=== PATIENT | male | born 1935 | race Caucasian/White ===

== ENCOUNTER 2019-11-01 13:57 | Observation (INO) | payer OTHER ==
[2019-11-01 14:18] VITALS: BMI 31.3
[2019-11-01] MEDS ORDERED: DIPHENHYDRAMINE 25 MG TAB/CAP PO PRN (15:00)
[2019-11-01] MEDS ORDERED: LOPERAMIDE HCL 2 MG CAPSULE PO PRN (15:00)
[2019-11-01] MEDS ORDERED: ACETAMINOPHEN 325 MG TABLET PO PRN (15:00)
[2019-11-01] MEDS ORDERED: ONDANSETRON 4 MG (ODT) TAB PO PRN (15:00)
[2019-11-01] MEDS ORDERED: ONDANSETRON 4 MG/2 ML VIAL IV PRN (15:00)
[2019-11-01] MEDS ORDERED: POLYETHYL GLY 3350 17 GM/DOSE PO PRN (15:00)
[2019-11-01 15:18] LABS: Absolute Lymphocytes (CBC) 0.9 K/uL (0.7-4.9); Basophils % 0.8 % (0-1.3); Hematocrit 42.6 % (39.6-49.0); Lymphocytes % 17.6 % (15.3-44.8); MPV 9.3 fL (7.6-11.3); RBC Red Blood Cell Count 4.62 M/uL (4.33-5.43)
[2019-11-01 15:22] LABS: Protime INR 1.02
--- NOTE | 2019-11-01 15:30 | RAD REPORT ---
EXAM DESCRIPTION: CT - Thorax Wo Con CLINICAL HISTORY: Chest pain dyspnea,wt loss,dysphagia COMPARISON: No comparisons FINDINGS: The lungs are clear. No pleural thickening or pleural effusion. No pneumothorax. No axillary, mediastinal or hilar adenopathy. No concerning bony finding. Small cystic lesion is seen right kidney, incompletely assessed. All CT scans are performed using dose optimization technique as appropriate and may include automated exposure control or mA/KV adjustment according to patient size. IMPRESSION: Unremarkable examination.
[2019-11-01 15:56] LABS: ALT/SGPT 18 U/L (12-78); AST/SGOT 14 U/L (15-37); Albumin 3.6 g/dL (3.4-5.0); Alkaline Phosphatase 65 U/L (45-117); BUN Blood Urea Nitrogen 15 mg/dL (7-18); Bicarbonate 29 mmol/L (21-32); Bilirubin Direct 0.2 mg/dL (0-0.2); Bilirubin Total 0.6 mg/dL (0.2-1.0); CKMB Creatine Kinase MB 1.5 ng/mL (0.3-3.6); Creatine Phosphokinase 72 U/L (39-308); Glucose Level 140 mg/dL (74-106); Phosphorus 2.2 mg/dL (2.5-4.9); Potassium 4.1 mmol/L (3.5-5.1); Protein, Total 7.3 g/dL (6.4-8.2); Sodium Level 139 mmol/L (136-145)
[2019-11-01 16:07] LABS: Urine Appearance CLEAR; Urine Bilirubin NEGATIVE (NEG); Urine Blood NEGATIVE (NEG); Urine Color YELLOW; Urine Glucose NEGATIVE (NEG); Urine Protein 1+ (NEG); Urine Specific Gravity 1.015 (1.005-1.030); Urine Urobilinogen 0.2 mg/dL (0.2-1.0); Urine pH 6.5 (5.0-7.0)
[2019-11-01 16:14] LABS: Urine Microscopic Reflex ORDER UMIC
[2019-11-01 16:33] LABS: Urine Bacteria <20 /HPF (NONE SEEN); Urine Culture Reflex Order NOT NEEDED; Urine RBC <5 /HPF (NONE SEEN)
[2019-11-01 17:25] LABS: Troponin I < 0.02 ng/mL (0.0-0.045)
--- NOTE | 2019-11-01 17:37 | RAD REPORT ---
EXAM DESCRIPTION: NM - Vent Perfusion VQ Scan - 11/01/2019 5:24 pm CLINICAL HISTORY: r/o PE Chest pain, shortness of breath COMPARISON: Urinary Bladder dated 11/14/2017; Thorax Wo Con dated 11/01/2019 TECHNIQUE: 12.6mCi Xe-133 gas inhaled and 7.4mCi Tc-MAA IV. Planar ventilation scan was performed in posterior projection after Xe-133 gas inhalation (wash-in, e quilibrium, and wash-out phases) followed by perfusion scan with Tc-MAA IV in multiple projections. Examination is correlated with recent chest radiograph. FINDINGS: Normal ventilation with appropriate wash-out and no significant air-trapping. No mismatched segmental perfusion defect. IMPRESSION: Low probability of pulmonary thromboembolism.
[2019-11-01] MEDS ORDERED: FUROSEMIDE 40 MG TABLET PO ONE (18:11)
[2019-11-01] MEDS ORDERED: TRAZODONE 50 MG TABLET PO ONE (20:54)
[2019-11-01] MEDS ORDERED: ALBUTEROL 2.5 MG/3 ML NEB SOL NEB PRN (20:58)
[2019-11-01] MEDS ORDERED: HOME MED 1 EA UNK (Simvastatin [Simvastatin] 1 TAB) PO SCH (21:00)
--- NOTE | 2019-11-01 21:18 | RAD REPORT ---
EXAM DESCRIPTION: US - Extrem Venous W Compress Wilbert - 11/01/2019 8:50 pm CLINICAL HISTORY: HIGH D DIMER, BOTH LEGS. Bilateral leg edema and swelling. COMPARISON: Upper Lower Extrem Art Multi dated 02/18/2019 TECHNIQUE: Real-time sonographic interrogation of the left and right lower extremity deep venous sys tems was performed. FINDINGS: Normal compressibility, flow augmentation, phasic flow and spontaneous flow is identified in both the left and right lower extremity deep venous systems. IMPRESSION: No sonographic evidence of left or right lower extremity deep venous thrombosis.
--- NOTE | 2019-11-01 23:32 | CON ---
Identification: 84-year-old man. Reason For Consult: Congestive heart failure. History Of Present Illness: Mr. Chan is 84. For several weeks or perhaps a month, he has been having a hard time sleeping. He will sleep for 30 minutes or so then sit to catch his breath. He wakes up out of breath, sits up, then improves in 30 minutes or so. Does not have chest pain or exertional dyspnea. He had noninvasive testing that was fine several years ago. He has underlying diabetes, obesity, hypertension, dyslipidemia. Outpatient Medications: Cholecalciferol, simvastatin, losartan, and naltrexone. Allergies: HE HAS NO ALLERGIES. Social History: He does not use tobacco. He quit probably 50 years ago, he said. Physical Examination: General: He is 5 feet 8 inches, 206 pounds, obese, alert, oriented, pleasant, not in distress. Lungs: Reveal some mild wheeze and crackles. Heart: Within normal limits. Abdomen: Soft. Extremities: Within normal limits. Distal pulses palpable. Actually, there is 1+ edema. Laboratory Data: His creatinine is 1.48 and his glomerular filtration rate is 48. He has stage 3 renal insufficiency. Impression: The patient has congestive heart failure. I would imagine that is diastolic. We will get an echocardiogram. Adding Lasix to his present regimen will help him. I am going to ask him to take a dose of Lasix tonight. The diuresis probably will need to continue as out patient alog with sodium restriction. SH/MODL Voice ID: [id number] Report ID: [id number] GISELLE
[2019-11-02] MEDS: ALBUTEROL 2.5 MG/3 ML NEB SOL NEB SCH ×2 (01:32→08:00)
[2019-11-02] MEDS: IPRATROPIUM BROM 0.5MG/2.5ML NEB SCH ×2 (01:32→08:00)
[2019-11-02 04:49] LABS: Absolute Lymphocytes (CBC) 0.9 K/uL (0.7-4.9); Basophils % 0.6 % (0-1.3); Hematocrit 42.2 % (39.6-49.0); Lymphocytes % 15.4 % (15.3-44.8); MPV 9.8 fL (7.6-11.3); RBC Red Blood Cell Count 4.54 M/uL (4.33-5.43)
[2019-11-02 04:57] LABS: Magnesium 1.9 mg/dL (1.8-2.4); Potassium 3.6 mmol/L (3.5-5.1)
[2019-11-02 05:57] LABS: UR MICROALBUMIN 10.6 mg/dL (< 1.9)
[2019-11-02] MEDS ORDERED: AMLODIPINE 2.5 MG TAB PO SCH (09:00)
[2019-11-02] MEDS ORDERED: ENOXAPARIN 40 MG/0.4 ML SQ SCH (09:00)
[2019-11-02] MEDS ORDERED: NALTREXONE PO SCH (09:00)
[2019-11-02] MEDS ORDERED: ENOXAPARIN 30 MG/0.3 ML SQ SCH (09:00)
[2019-11-02] MEDS ORDERED: FUROSEMIDE 40 MG TABLET PO SCH (09:00)
[2019-11-02] MEDS ORDERED: POTASSIUM CL SA 10 MEQ TAB PO ONE (09:00)
--- NOTE | 2019-11-02 09:55 | RAD REPORT ---
EXAM DESCRIPTION: US - Abdomen Exam Complete - 11/02/2019 9:04 am CLINICAL HISTORY: Abdominal pain. PAIN IN ABDOMEN COMPARISON: Renal Ultrasound-Complete dated 11/14/2017 FINDINGS: Mild diffuse fatty liver is seen. No focal liver lesions or intrahepatic biliary dilatatio n is seen. The gallbladder demonstrates no gallstones, pericholecystic fluid or gallbladder wall thickening. Co mmon bile duct is normal in caliber measuring 3 mm. Both kidneys are normal in size with mild cortical thinning. No hydronephrosis, focal lesion of parth rn or perinephric fluid. The spleen is normal in size measuring 10 cm The pancreas and aorta are obscured by bowel gas. The visualized aspects of the IVC are grossly normal. IMPRESSION: Mild fatty liver.
[2019-11-02 12:06] VITALS: BP 131/69; TEMP 97.6
[2019-11-02 12:23] VITALS: O2SAT 98
--- NOTE | 2019-11-02 12:51 | ECHO ---
HEIGHT: 5 ft 8 in WEIGHT: 206 lb 0 oz DATE OF STUDY: 11/02/[address]: Camacho Domingo MD 2-DIMENSIONAL: YES M.MODE: YES DOPPLER: YES COLOR FLOW: YES TDS: NO PORTABLE: NO DEFINITY: NO BUBBLE STUDY: NO DIAGNOSIS: EDEMA, DYSPNEA CARDIAC HISTORY: CATHERIZATION: NO SURGERY: NO PROSTHETIC VALVE: NO PACEMAKER: NO MEASUREMENTS (cm) DIASTOLIC (NORMALS) SYSTOLIC (NORMALS) IVSd 1.1 (0.6-1.2) LA Diam 2.9 (1.9-4.0) LVEF 65% LVIDd 4.9 (3.5-5.7) LVIDs 3.1 (2.0-3.5) %FS 36% LVPWd 1.3 (0.6-1.2) Ao Diam 3.1 (2.0-3.7) 2 DIMENSIONAL ASSESSMENT: RIGHT ATRIUM: NORMAL LEFT ATRIUM: NORMAL RIGHT VENTRICLE: NORMAL LEFT VENTRICLE: NORMAL TRICUSPID VALVE: NORMAL MITRAL VALVE: MITRAL ANNULAR CALCIFICATION PULMONIC VALVE: NORMAL AORTIC VALVE: SCLEROSIS PERICARDIAL EFFUSION: NONE AORTIC ROOT: NORMAL LEFT VENTRICULAR WALL MOTION: NORMAL LEFT VENTRICULAR EJECTION FRACTION, DECREASED LEFT VENTRICULAR COMPLIANCE. DOPPLER/COLOR FLOW: NORMAL COMMENTS: AORTIC SCLEROSIS WITH NO STENOSIS. MITRAL ANNULAR CALCIFICATION. NORMAL LEFT VENTRICULAR SIZE. DECREASED LEFT VENTRICULAR COMPLIANCE. NORMAL LEFT VENTRICULAR EJECTION FRACTION. TECHNOLOGIST: Filippo PAIGE
--- NOTE | 2019-11-02 17:53 | P.DS ---
Admission Date: 11/01/19 Discharge Date: 11/02/19 Disposition: ROUTINE DISCHARGE Discharge Condition: FAIR - Problems (1) Diastolic CHF, acute Status: Acute (2) HTN (hypertension) Status: Chronic Qualifiers: Hypertension type: essential hypertension Qualified Code(s): I10 - Essential (primary) hypertension (3) Diabetes Status: Chronic Qualifiers: Diabetes mellitus type: type 2 (4) CKD (chronic kidney disease) stage 3, GFR 30-59 ml/min Status: Chronic Hospital Course: MR. GOVEA COMES WITH DYSPNEA, PND, ORTHOPNEA AT MY OFFICE. I SUSPECTED CHF AND ADMITTED HIM FOR FURTHER FU. CXR IS NEGATIVE, VQ NEG, VENOUS DOPPLER NEG BUT HE DID FEEL BETTER AFTER SMALL DOSE OF LASIX. HE NOW ON LASIX AND COREG. I STOPPED LOSARTAN TO SEE IF CREATININE IMPROVES. FU IN ONE WEEK. Vital Signs/Physical Exam: Temp Pulse Resp BP Pulse Ox 97.6 F 66 15 131/69 99 11/02/19 12:00 11/02/19 12:00 11/02/19 12:00 11/02/19 12:00 11/02/19 12:00 Laboratory Data at Discharge: WBC 5.9 K/uL (4.3-10.9) 11/02/19 04:14 Hgb 14.3 g/dL (13.6-17.9) 11/02/19 04:14 Hct 42.2 % (39.6-49.0) 11/02/19 04:14 Plt Count 134 K/uL (152-406) L 11/02/19 04:14 PT 12.0 SECONDS (9.5-12.5) 11/01/19 15:02 INR 1.02 11/01/19 15:02 APTT 27.9 SECONDS (24.3-36.9) 11/01/19 15:02 Sodium 139 mmol/L (136-145) 11/02/19 04:14 Potassium 3.6 mmol/L (3.5-5.1) 11/02/19 04:14 BUN 14 mg/dL (7-18) 11/02/19 04:14 Creatinine 1.56 mg/dL (0.55-1.3) H 11/02/19 04:14 Glucose 149 mg/dL (74-106) H 11/02/19 04:14 Phosphorus 2.2 mg/dL (2.5-4.9) L 11/01/19 15:02 Magnesium 1.9 mg/dL (1.8-2.4) 11/02/19 04:14 Total Bilirubin 0.6 mg/dL (0.2-1.0) 11/01/19 15:02 AST 14 U/L (15-37) L 11/01/19 15:02 ALT 18 U/L (12-78) 11/01/19 15:02 Alkaline Phosphatase 65 U/L (45-117) 11/01/19 15:02 Troponin I < 0.02 ng/mL (0.0-0.045) 11/01/19 15:02 Home Medications: Cholecalciferol (Vitamin D3) [Vitamin D 1000 Iu Tab*] 1 tab PO DAILY 11/01/19 Naltrexone HCl Dihydrate 1.5 mg PO DAILY 11/01/19 Simvastatin 1 tab PO BEDTIME 11/01/19 Furosemide 20 mg PO DAILY #90 tablet 11/02/19 carvediloL [Carvedilol] 6.25 mg PO BID #180 tablet 11/02/19 New Medications: carvediloL [Carvedilol] 6.25 mg PO BID #180 tablet Furosemide 20 mg PO DAILY #90 tablet Diet: AHA
--- NOTE | 2019-11-02 19:19 | PN ---
Date of Progress Note: 11/02/2019 Mr. Chan was admitted with shortness of breath on November 01, 2019. The most likely diagnosis was diastolic congestive heart failure, is improving now. He was taking Norvasc, inhalers, Zocor, Loven ox as well as Lasix. I think his amlodipine was stopped. Echocardiogram today confirmed normal ejec tion fraction with decreased left ventricular compliance consistent with diastolic congestive heart f ailure that is early age and mild. Nevertheless, I think I am comfortable with him going home on CAN inhibitors and Lasix as well as inhalers and statin. I will make arrangements for him to have outpa tient stress testing. He can go home today and we will see him in the office in the next 2 weeks. T he case was discussed with Dr. Domingo. CHELSEA/GAYLE Voice ID: [id number] Report ID: [id number]
== END 2019-11-02 13:11 | disposition home or self-care (01) ==
LOC: 4TH 13:57
PROVIDERS: ADMIT Internal Medicine; ATTEND Internal Medicine
DX: I50.31 Acute diastolic (congestive) heart failure (principal); I13.0 Hypertensive heart and chronic kidney disease with heart failure and stage 1 through stage 4 chronic kidney disease, or unspecified chronic kidney disease; N18.3 Chronic kidney disease, stage 3 (moderate); E11.22 Type 2 diabetes mellitus with diabetic chronic kidney disease; E66.9 Obesity, unspecified; Z68.31 Body mass index [BMI] 31.0-31.9, adult
CPT/HCPCS: 93306; 85025 ×2; 80048 ×2; 36415 ×2; 83735 ×2; 82550; 84100; 85610; 85379; 80076; 85730; 85652; 84443; 83036; 82570; 84484; 82553; 82607; 84403; 82306; 84238; 83880; 86140; 82043; 71250; 93970; 76700; 78582; G0379; J1650; A9558; A9540; G0378 ×3; 81003; 81015

== ENCOUNTER 2024-05-11 21:18 | Emergency (ER) | payer OTHER ==
--- NOTE | 2024-05-11 22:28 | RAD REPORT ---
EXAM DESCRIPTION: RAD - Chest Single View - 05/11/2024 10:17 pm CLINICAL HISTORY: FEVER COMPARISON: <Comparisons> FINDINGS: Lines: None. Lungs: No evidence of edema or pneumonia. Linear scarring versus subsegmental atelectasis in the righ t mid lung . Pleural: No significant pleural effusions or pneumothorax. Cardiac: The heart size is within normal limits. Mediastinum: Within normal limits. Bones: No acute fractures. Other: None IMPRESSION: No acute cardiopulmonary disease.
[2024-05-11 22:29] LABS: Absolute Lymphocytes (CBC) 0.3 K/uL (0.7-4.9); Absolute Monocytes 0.5 K/uL (0.1-1.3); Absolute Neutrophil 3.4 K/uL (1.8-8.0); Basophils % 0.7 % (0-1.3); Eosinophils % 0.5 % (0-4.4); Hematocrit 32.8 % (39.6-49.0); Hemoglobin 11.2 g/dL (13.6-17.9); Lymphocytes % 7.6 % (15.3-44.8); MCH 31.8 pg (27.0-35.0); MCHC 34.2 g/dL (32.0-36.0); MPV 8.6 fL (7.6-11.3); Monocytes % 12.4 % (3.3-12.3); Neutrophils % 78.8 % (41.7-73.7); Nucleated Red Blood Cells % 0.1 % (0-0); Platelets 140 thou/uL (152-406); RBC Red Blood Cell Count 3.52 M/uL (4.33-5.43); Red Cell Distribution Width 13.7 % (12.1-15.2)
[2024-05-11 22:46] LABS: AST/SGOT 15 U/L (15-37); Albumin 2.9 g/dL (3.4-5.0); Albumin/Globulin Ratio 0.9 (1.1-1.8); Alkaline Phosphatase 60 U/L (45-117); Anion Gap 10.1 mEq/L (5.0-15.0); BUN Blood Urea Nitrogen 24 mg/dL (7-18); Bicarbonate 25 mEq/L (21-32); Bilirubin Total 0.5 mg/dL (0.2-1.0); Globulin 3.4 g/dL (2.3-3.5); Glomerular Filtration Rate 48 ml/min (=/>90); Glucose Level 135 mg/dL (74-106); Potassium 4.1 mEq/L (3.5-5.1); Protein, Total 6.3 g/dL (6.4-8.2); Sodium Level 137 mEq/L (136-145)
[2024-05-11 22:47] LABS: ALT/SGPT < 14 U/L (16-61)
[2024-05-11 23:00] LABS: PT Prothrombin Time 13.1 SECONDS (9.4-12.5); PTT, Activated Partial Thromb 22.7 SECONDS (24.3-36.9); Protime INR 1.18
[2024-05-11 23:21] LABS: SARS-CoV-2 Antigen CONTROL BLUE LINE VIS/BG OK; SARS-CoV-2 Antigen Rapid Res Positive (Negative)
[2024-05-11] MEDS ORDERED: NA CHLORIDE 0.9% 500 ML ONE (23:43)
[2024-05-11 23:48] LABS: Renal Epithelial <5 /HPF (None Seen); Sqamous Epithelial <5 /HPF (None Seen); Urine Bacteria <20 /HPF (<20); Urine Bilirubin NEGATIVE (Negative); Urine Blood Negative (Negative); Urine Clarity Clear (Clear); Urine Color Yellow (Yellow); Urine Culture Reflex Order NOT NEEDED; Urine Glucose NEGATIVE (Negative); Urine Ketones 1+ (Negative); Urine Microscopic Reflex YN ORDER UMIC; Urine Mucus Slight /HPF (None Seen); Urine Nitrite NEGATIVE (Negative); Urine Protein 1+ (Negative); Urine RBC <5 /HPF (None Seen); Urine Urobilinogen Normal (Normal); Urine WBC <5 /HPF (<5); Urine pH 5.5 (5.0-7.0)
--- NOTE | 2024-05-11 23:51 | ER ---
Nurse's Notes [facility] Name: Raina Chan Age: 88 yrs Sex: Male : 1935 Arrival Date: 05/11/2024 Time: 21:18 Bed 16 Private MD: Diagnosis: SARS-associated coronavirus as the cause of diseases classified elsewhere Presentation: 05/11 21:40 Chief complaint: Patient states: Fever, generalized weakness, back pain and leg pain. jw7 Started feeling "ill" this morning and have been unable to walk like normal. Spouse and/or significant other states: He hasn't ate anything today, which is abnormal and came into contact with a COVID+ person on Friday. Coronavirus screen: At this time, the client does not indicate any symptoms associated with coronavirus-19. Ebola Screen: No symptoms or risks identified at this time. Initial Sepsis Screen: Does the patient meet any 2 criteria? No. Patient's initial sepsis screen is negative. Does the patient have a suspected source of infection? No. Patient's initial sepsis screen is negative. Risk Assessment: Do you want to hurt yourself or someone else? Patient reports no desire to harm self or others. Onset of symptoms was May 11, 2024. Care prior to arrival: Medication(s) given: Normal saline infusion, 300 mL Tylenol, 975 mg IV initiated. 18 GA, in the right forearm. 21:40 Acuity: ANCA 3 jw7 21:40 Method Of Arrival: EMS: [facility] 7 Triage Assessment: 21:40 General: Appears in no apparent distress. uncomfortable, Behavior is calm, cooperative, jw7 appropriate for age. Pain: Complains of pain in Back and, Bilateral Lower Extremities, Pain does not radiate. Pain currently is 5 out of 10 on a pain scale. Quality of pain is described as throbbing, Pain began gradually, years ago. Is intermittent. 21:40 EENT: No deficits noted. No signs and/or symptoms were reported regarding the EENT jw7 system. Neuro: Level of Consciousness is awake, alert, obeys commands, Oriented to person, place, time, situation, Appropriate for age. Cardiovascular: Heart tones S1 S2 present Capillary refill < 3 seconds Clubbing of nail beds is absent JVD is absent Patient's skin is warm and dry. Respiratory: Airway is patent Trachea midline Respiratory effort is even, unlabored, Respiratory pattern is regular, symmetrical, Breath sounds are clear bilaterally. GI: Abdomen is flat, non-distended, Bowel sounds present X 4 quads. Abd is soft and non tender X 4 quads. : No deficits noted. No signs and/or symptoms were reported regarding the genitourinary system. Derm: Skin is intact, is healthy with good turgor, Skin is dry, Skin is normal, Skin temperature is warm. Musculoskeletal: Circulation, motion, and sensation intact. Range of motion: intact in all extremities. Historical: - Allergies: 21:40 No Known Allergies; jw7 - Home Meds: 21:40 levothyroxine oral [Active]; carbidopa-levodopa 25-100 mg oral tablet [Active]; jw7 carvedilol 6.25 mg oral tablet [Active]; allopurinol 100 mg Oral tablet [Active]; simvastatin 20 mg Oral tablet [Active]; - PMHx: 21:40 Hypertensive disorder; Hypercholesterolemia; Parkinson's disease; Hard of Hearing; jw7 - PSHx: 21:40 Left Knee Replacement; Prostate; jw7 - Immunization history:: Adult Immunizations up to date. - Infectious Disease History:: Denies. - Social history:: Smoking status: Patient denies any tobacco usage or history of. Screenin:40 [facility] ED Fall Risk Assessment (Adult) History of falling in the last 3 months, jw7 including since admission No falls in past 3 months (0 pts) Confusion or Disorientation No (0 pts) Intoxicated or Sedated No (0 pts) Impaired Gait Yes (1 pt) Mobility Assist Device Used Yes (1 pt) Altered Elimination No (0 pt) Score/Fall Risk Level 0 - 2 = Low Risk Oriented to surroundings, Maintained a safe environment, Educated pt \\T\\ family on fall prevention, incl call for assistance when getting out of bed. Abuse screen: Denies threats or abuse. Denies injuries from another. Nutritional screening: No deficits noted. Tuberculosis screening: No symptoms or risk factors identified. Assessment: 21:40 General: See Triage Assessment. jw7 22:30 Reassessment: Patient appears in no apparent distress at this time. No changes from jw7 previously documented assessment. Patient and/or family updated on plan of care and expected duration. Pain level reassessed. Patient is alert, oriented x 3, equal unlabored respirations, skin warm/dry/pink. 23:30 Reassessment: Patient appears in no apparent distress at this time. No changes from [facility] previously documented assessment. Patient and/or family updated on plan of care and expected duration. Pain level reassessed. Patient is alert, oriented x 3, equal unlabored respirations, skin warm/dry/pink. 23:30 Neuro: Level of Consciousness is awake, alert, obeys commands, Oriented to person, jw place, time, situation, Appropriate for age. 05/12 00:27 Reassessment: Patient appears in no apparent distress at this time. Patient and/or jw7 family updated on plan of care and expected duration. Pain level reassessed. Patient is alert, oriented x 3, equal unlabored respirations, skin warm/dry/pink. Vital Signs: 05/11 21:40 BP 118 / 62; Pulse 80; Resp 16 S; Temp 99.2(O); Pulse Ox 98% on R/A; Weight 76.66 kg; 7 Height 5 ft. 9 in. ; Pain 5/10; 22:00 BP 118 / 62; Pulse 86; Resp 17 S; Pulse Ox 98% on R/A; jw7 23:00 BP 118 / 58; Pulse 72; Resp 17 S; Pulse Ox 96% on R/A; jw7 05/12 00:07 BP 113 / 58; Pulse 70; Resp 16 S; Pulse Ox 96% on R/A; jw7 05/11 21:40 Body Mass Index 24.96 (76.66 kg, 175.26 cm) [facility] 05/11 21:40 Pain Scale: Adult jw ED Course: 05/11 10:33 Initial lab(s) drawn, by me, sent to lab. First set of blood cultures drawn by me, vk Second set of blood cultures drawn by me, COVID swab sent to lab. Flu and/or RSV swab sent to lab. Maintain EMS IV. Dressing intact. Good blood return noted. Site clean \\T\\ dry. Gauge \\T\\ site: right forearm 18 lambert . Flushed right forearm with 5 ml normal saline Converted IV to saline lock on right forearm. 21:27 Patient arrived in ED. jj6 21:30 Brnyn Ulrich MD is Attending Physician. sp3 21:32 Britney Dumas FNP-C is [facility]. kb 21:40 Patient has correct armband on for positive identification. Bed in low position. Call jw7 light in reach. Side rails up X2. Provided Education on: use of call light. 21:40 Arm band placed on. jw7 22:19 Chest Single View XRAY In Process Unspecified. EDMS 22:43 Urinalysis w/ reflexes Sent. vk 22:43 Ptt, Activated Sent. vk 22:43 Protime (+inr) Sent. vk 22:43 Lactate w/ 2H reflex if indic. Sent. vk 22:44 Blood Culture Adult (2) Sent. vk 22:44 CMP Sent. vk 22:46 Flu Sent. jw7 22:46 SARS-COV-2 Antigen Rapid Sent. jw7 23:03 Alvina Magaña, RN is Primary Nurse. jw7 23:17 Triage completed. jw7 23:26 EKG done, by ED staff. vk 23:26 Urine collected: clean catch specimen, clear. vk 23:27 Warm blanket given. vk 23:27 Pillow given. vk 05/12 00:06 No provider procedures requiring assistance completed. jw7 00:30 IV discontinued, intact, bleeding controlled, No redness/swelling at site. Pressure jw7 dressing applied. Administered Medications: 05/11 23:48 Drug: NS 0.9% IV 500 ml IV at bolus once Route: IV; Rate: bolus; Site: right forearm; jw7 05/12 00:29 Follow up: Response: No adverse reaction; IV Status: Completed infusion; IV Intake: jw7 500ml Medication: 00:06 VIS not applicable for this client. jw7 Intake: 00:29 IV: 500ml; Total: 500ml. jw7 Outcome: 05/11 23:51 Discharge ordered by . kb 05/12 00:30 Discharged to home via wheelchair, with family, jw7 Condition: stable Discharge instructions given to patient, family, Instructed on discharge instructions, follow up and referral plans. Demonstrated understanding of instructions, follow-up care, 00:30 Patient left the ED. jw7 Signatures: Dispatcher [employer] EDMS Britney Dumas FNP-C IC DESIGNER STANDARD CELLS-Ckb Brynn Ulrich MD MD sp3 Shaneka Dang j6 Alvina Magaña, FRANKIE RN jw7 Akil, Shona vk
--- NOTE | 2024-05-11 23:51 | EDPHYS ---
Physician Documentation [facility] Name: Raina Chan Age: 88 yrs Sex: Male : 1935 Arrival Date: 05/11/2024 Time: 21:18 Bed 16 Private MD: ED Physician Brynn Ulrich HPI: 05/11 23:29 This 88 yrs old Male presents to ER via EMS with complaints of Leg Pain, Back Pain, kb Fever, General Weakness. 23:29 Patient is a 88-year-old male who presents for generalized weakness, fever, malaise and kb decreased appetite that started this morning. States he tried to get out of bed and had bilateral leg pain so he was unable to walk well. Also reports low back pain that has been ongoing for months. Recently exposed to COVID. Denies nausea, vomiting, diarrhea. Historical: - Allergies: 21:40 No Known Allergies; jw7 - Home Meds: 21:40 levothyroxine oral [Active]; carbidopa-levodopa 25-100 mg oral tablet [Active]; jw7 carvedilol 6.25 mg oral tablet [Active]; allopurinol 100 mg Oral tablet [Active]; simvastatin 20 mg Oral tablet [Active]; - PMHx: 21:40 Hypertensive disorder; Hypercholesterolemia; Parkinson's disease; Hard of Hearing; jw7 - PSHx: 21:40 Left Knee Replacement; Prostate; jw7 - Immunization history:: Adult Immunizations up to date. - Infectious Disease History:: Denies. - Social history:: Smoking status: Patient denies any tobacco usage or history of. ROS: 23:30 Constitutional: As per HPI kb Exam: 23:30 Constitutional: This is a well developed, well nourished patient who is awake, alert, kb and in no acute distress. Head/Face: Normocephalic, atraumatic. ENT: Moist Mucous membranes Cardiovascular: Regular rate Respiratory: Respirations even and unlabored. No increased work of breathing. Talking in full sentences Abdomen/GI: Soft, non-tender. No distention Skin: Warm, dry with normal turgor. Normal color. MS/ Extremity: Pulses equal, no cyanosis. Neurovascular intact. Full, normal range of motion. Edema to right lower extremity noted. states this is intermittent and chronic. Neuro: Awake and alert, GCS 15, oriented to person, place, time, and situation. Moves all extremities. Normal gait. 23:46 ECG was reviewed by the Attending Physician. Vital Signs: 21:40 BP 118 / 62; Pulse 80; Resp 16 S; Temp 99.2(O); Pulse Ox 98% on R/A; Weight 76.66 kg; jw7 Height 5 ft. 9 in. ; Pain 5/10; 22:00 BP 118 / 62; Pulse 86; Resp 17 S; Pulse Ox 98% on R/A; 7 23:00 BP 118 / 58; Pulse 72; Resp 17 S; Pulse Ox 96% on R/A; [facility] 05/12 00:07 BP 113 / 58; Pulse 70; Resp 16 S; Pulse Ox 96% on R/A; [facility] 05/11 21:40 Body Mass Index 24.96 (76.66 kg, 175.26 cm) [facility] 05/11 21:40 Pain Scale: Adult [facility] MDM: 05/11 21:32 Patient medically screened. 23:31 Differential diagnosis: flu, covid, uti, pneumonia, abnormal electrolytes, dehydration. Data reviewed: vital signs, nurses notes. Historians other than the Patient: EMS: [facility]. Spouse/Significant Other: . Daughter/Son: daughter. 23:50 I considered the following discharge prescriptions or medication management in the emergency department I discussed and recommended Over The Counter medications, Antibiotics: At this time antibiotics are not recommended, Antivirals: At this time, antivirals are not recommended. Counseling: I had a detailed discussion with the patient and/or guardian regarding the historical points, exam findings, and any diagnostic results supporting the discharge/admit diagnosis, lab results, radiology results, the need for outpatient follow up, a family practitioner, to return to the emergency department if symptoms worsen or persist or if there are any questions or concerns that arise at home. 05/11 21:39 Order name: Blood Culture Adult (2) 05/11 21:39 Order name: CBC with Diff; Complete Time: 22:35 kb 05/11 21:39 Order name: CMP; Complete Time: 22:48 05/11 21:39 Order name: Lactate w/ 2H reflex if indic.; Complete Time: 22:49 05/11 21:39 Order name: Protime (+inr); Complete Time: 23:06 kb 05/11 21:39 Order name: Ptt, Activated; Complete Time: 23:06 kb 05/11 21:39 Order name: Urinalysis w/ reflexes; Complete Time: 23:50 kb 08 21:39 Order name: SARS-COV-2 Antigen Rapid; Complete Time: 23:22 kb 08 21:39 Order name: Flu; Complete Time: 23:24 kb 08 21:39 Order name: Chest Single View XRAY; Complete Time: 22:35 kb 05/11 21:39 Order name: EKG; Complete Time: 21:40 kb 08 21:39 Order name: Accucheck; Complete Time: 22:46 kb 08 21:39 Order name: Cardiac monitoring; Complete Time: 23:26 kb 05/11 21:39 Order name: EKG - Nurse/Tech; Complete Time: 23:26 kb 08 21:39 Order name: IV Saline Lock - Large Bore; Complete Time: 22:11 kb 08 21:39 Order name: Labs collected and sent; Complete Time: 22:11 kb 08 21:39 Order name: O2 Per Protocol; Complete Time: 22:11 kb 08 21:39 Order name: O2 Sat Monitoring; Complete Time: 22:11 kb 08 21:39 Order name: Vital Signs; Complete Time: 22:11 kb EC:46 Rate is 72 beats/min. Rhythm is regular. QRS Moon is Normal. NM interval is prolonged kb at 242 msec. QRS interval is normal at 106 msec. QT interval is normal at 440 msec. Administered Medications: 23:48 Drug: NS 0.9% IV 500 ml IV at bolus once Route: IV; Rate: bolus; Site: right forearm; jw7 05/12 00:29 Follow up: Response: No adverse reaction; IV Status: Completed infusion; IV Intake: jw7 500ml Disposition Summary: 05/11/24 23:51 Discharge Ordered Notes: Location: Home kb Condition: Stable kb Diagnosis - SARS-associated coronavirus as the cause of diseases classified elsewhere kb Followup: kb - With: Emergency Department - When: As needed - Reason: Worsening of condition Followup: kb - With: Private Physician - When: 2 - 3 days - Reason: Recheck today's complaints, Continuance of care, Re-evaluation by your physician Discharge Instructions: - Discharge Summary Sheet kb - COVID-19 kb - Viral Illness, Adult kb Forms: - Medication Reconciliation Form kb - Antibiotic Education kb - Prescription Opioid Use kb - Patient Portal Instructions kb - Leadership Thank You Letter kb Signatures: Dispatcher [employer] Britney Raymond, NERIC Alvina Daniel, RN RN jw7
[2024-05-12 10:33] VITALS: TEMP 99.2
[2024-05-12 10:46] VITALS: O2SAT 96
[2024-05-12 10:47] VITALS: BP 113/58
--- NOTE | 2024-05-13 13:10 | EKG ---
Test Date: 2024-05-11 Test Time: 23:21:58 Rug Setter Velvet: SARI MEASUREMENT RESULTS: Intervals: Rate: 72 IL: 242 QRSD: 106 QT: 402 QTc: 440 [place]: P: -5 IL: 242 QRS: 113 T: 22 INTERPRETIVE STATEMENTS: Sinus rhythm with 1st degree AV block Left posterior fascicular block Septal infarct, age undetermined Abnormal ECG Compared to ECG 05/11/2024 23:19:44 Myocardial infarct finding now present Electronically Signed On 05-13-24 13:05:56 CDT by Rafael Ferreira
--- NOTE | 2024-05-13 13:10 | EKG ---
Test Date: 2024-05-11 Test Time: 23:19:44 Process Analyst: SARI MEASUREMENT RESULTS: Intervals: Rate: 71 NH: 246 QRSD: 100 QT: 392 QTc: 425 [place]: P: -18 NH: 246 QRS: 112 T: 34 INTERPRETIVE STATEMENTS: Poor data quality, interpretation may be adversely affected Sinus rhythm with 1st degree AV block Low voltage QRS Left posterior fascicular block Abnormal ECG No previous ECG available for comparison Electronically Signed On 05-13-24 13:05:57 CDT by Rafael Ferreira
== END 2024-05-12 00:30 | disposition home or self-care (01) ==
LOC: ER 21:18
DX: U07.1 COVID-19 (principal)
CPT/HCPCS: 93005; 87040 ×2; 85025; 81001; 36415; 87205; 85610; 83605; 85730; 80053; 87804 ×2; 71045; 87811; J7040